=== PATIENT | male | born 1965 | race Caucasian/White ===

== ENCOUNTER 2019-04-02 12:15 | Emergency (ER) | payer OTHER ==
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
--- NOTE | 2019-04-02 14:08 | CT ---
Head CT Technique: Multiple axial sections through the brain were obtained. Intravenous contrast was not utilized. Comparison: No prior intracranial imaging. Findings: Ventricles along with basal cisterns and sulci over the convexities are within normal limits for the patient's age. No abnormal parenchymal densities are seen. No evidence of intracranial hemorrhage. No midline shift or mass effect is seen. Bone window settings were reviewed which shows no acute calvarial abnormality. Visualized sinuses are clear. Impression: 1. Nothing acute is appreciated on noncontrast CT study of the head. Diagnostic code #1
--- NOTE | 2019-04-02 14:08 | CT ---
CT chest Technique: Multiple axial sections were obtained from above the lung apices inferiorly through the lung bases. Details are limited due to lack of IV contrast. Findings: Mediastinum and hilar regions show no hematoma or adenopathy. Aorta shows no aneurysm. No further comment can be made about the vascular structures. No pericardial fluid is seen. Lungs are clear with no acute parenchymal change. No pleural effusions are seen. No pneumothorax is identified. Vertebral body heights and disc spaces are maintained within the thoracic spine. Reconstructed sagittal images of the sternum appear intact. No discrete rib fracture is appreciated. Impression: 1. No abnormality is appreciated on CT study of the chest performed without IV contrast. Diagnostic code #1 CT abdomen and pelvis Technique: Multiple axial sections were obtained from above the dome of the diaphragm inferiorly through the pubic symphysis. Intravenous and oral contrast was utilized. Lack of IV contrast limits solid organ evaluation. Findings: Vague low-density area is noted within the right lobe of the liver measuring 1.3 cm which is most likely due to small cyst. Liver shows no fatty infiltration. Spleen appears within normal limits. Adrenal glands show no nodule. No discrete pancreatic abnormality is seen. Kidneys show no abnormal calcifications or hydronephrosis. No retroperitoneal adenopathy or mesenteric abnormalities are seen. Aorta shows no aneurysm. Appendix is seen which is normal. Diverticuli are seen within the descending and sigmoid colon without diverticulitis. No pelvic mass or adenopathy is seen. No free fluid or inflammatory change is seen within the abdomen or pelvis. Bone window settings were reviewed which show posterior disc space narrowing at L5-S1. Vertebral body heights and disc spaces are otherwise preserved. No discrete lumbar spine fracture is seen. Pelvis and bilateral hips also appear to be intact. Impression: 1. Nothing acute is appreciated on noncontrast CT study of the chest and abdomen. 2. Other incidental findings as noted above. Diagnostic code #2
--- NOTE | 2019-04-02 14:09 | CT ---
CT cervical spine Technique: Multiple axial sections through the cervical spine were obtained. Cervical spine was visualized from above C1 inferiorly to the bottom of T1. Reconstructed sagittal and coronal images were obtained. Comparison: No prior CT cervical spine imaging. Findings: Fairly severe disc space narrowing is noted at C5-C6 with posterior osteophytes and mild anterior osteophytes. Other disc spaces and vertebral body heights are maintained. Minimal degenerative change is noted between the dens and anterior arch of C1. Mild right-sided neural foraminal stenosis is noted C4-C5. Moderate bilateral neural foraminal stenosis is noted at C5-C6. Other neural foramina are patent. No central canal stenosis is seen. No fracture is identified. No abnormal subluxation is seen. AP view shows degenerative spurring within the uncovertebral joints at C5-C6. Impression: 1. Degenerative change as noted above. Nothing acute is appreciated on CT study of the cervical spine. Diagnostic code #2
== END 2019-04-02 15:55 | disposition home or self-care (01) ==
LOC: JD.ED 12:15
DX: S20.211A Contusion of right front wall of thorax, initial encounter (principal); S40.811A Abrasion of right upper arm, initial encounter; Z88.8 Allergy status to other drugs, medicaments and biological substances; V89.2XXA Person injured in unspecified motor-vehicle accident, traffic, initial encounter
CPT/HCPCS: 70450; 70450-26; 71250; 71250-26; 72125; 72125-26; 74176; 74176-26; 81001; 93005; 93225; 93226; 99282; 99284-25